=== PATIENT | male | born 1980 | race Caucasian/White ===

== ENCOUNTER 2021-03-28 08:57 | Emergency (ER) | payer BC, SELFPAY ==
[2021-03-28 08:58] VITALS: BP 108/71; PULSE 64; RESP 18; TEMP 36.6; O2SAT 99; BMI 20.4
--- NOTE | 2021-03-28 09:11 | EX.ED.DYSGE1 ---
HPI History of Present Illness Chief Complaint: Back Informant: patient Narrative Narrative: Patient is a 41-year-old male with a history of GERD and asthma who presents to the emergency department for low back pain. Initially started yesterday after cutting branches off of a tree. The majority the pain is on the left side. This is only located in the low back. He denies any falls or trauma. He felt his back tweak at one point and the pain has becoming severe. He currently rates the pain as a 4 out of 10 while sitting. Up walking around makes it worse and gets to a 10 out of 10. Is been taking ibuprofen at home for this without any relief. He denies any saddle anesthesia. No urinary incontinence/retention. No change in bowel movements. No radiation of the pain down his legs. No history of back issues before. No fevers or chills. Denies any IV drug abuse. PFSH PFSH Home Medications cyclobenzaprine 10 mg PO TID PRN #20 tablet 03/28/21 [Rx Last Taken Unknown] lidocaine [Lidoderm] 1 patch TOPICAL DAILY #3 ea 03/28/21 [Rx Last Taken Unknown] naproxen [Naprosyn] 500 mg PO BID PRN #20 tab 03/28/21 [Rx Last Taken Unknown] Allergy/AdvReac Type Severity Reaction Status Date / Time No Known Allergies Allergy Verified 03/28/21 08:59 Social History (Updated 03/28/21 @ 09:[address] Dionte Shannon, DO) Smoking Status: Never smoker ROS ROS ED Constitutional Constitutional ED: Denies chills or fever(s) Eyes Eyes: Denies change in vision ENT ENT ED: Denies epistaxis or rhinorrhea Cardiovascular Cardiovascular: Denies chest pain or palpitations Respiratory/Chest Respiratory/Chest: Denies cough, dyspnea or dyspnea on exertion Gastrointestinal Gastrointestinal: Denies abdominal pain, diarrhea, nausea or vomiting Genitourinary Genitourinary ED: Denies dysuria, hematuria or urinary frequency Musculoskeletal Musculoskeletal: Reports back pain; Denies neck pain Integumentary Denies rash Neurologic Neurologic: Denies dizziness, headache(s) or weakness EXAM Physical Exam Const Vital Signs: 03/28/21 08:58 Temperature 97.9 F Temperature Source Temporal Pulse Rate 64 Respiratory Rate 18 Blood Pressure 108/71 Blood Pressure Mean 83 Pulse Ox 99 Oxygen Delivery Method Room Air Positive well nourished and well developed General Appearance ED: well developed and NAD HEENT Reports normocephalic, head/scalp atraumatic and moist mucous membranes Eyes PERRL and EOMs intact bilaterally Neck supple General: Negative for tenderness Chest Wall inspection of chest normal Resp normal respiratory effort and clear to auscultation bilaterally Auscultation: Negative for rales, rhonchi or wheezes Cardio regular rate, regular rhythm and no murmurs GI normal to inspection, nondistended, normoactive bowel sounds and non-tender Palpation: soft; Negative for guarding or rebound tenderness present Back/Spine no CVA tenderness Back/Spine Narrative: Negative straight leg test bilaterally. No reproducible pain on palpation. Extremity normal to inspection General Extremety ED: Negative for edema or tenderness General Extremity: Negative for edema Neuro oriented x3, CN's II-XII intact bilaterally and no sensory deficits noted Sensorium / Orientation: alert Motor Exam: strength 5/5 throughout Psych mental status grossly normal Skin no rashes or lesions noted MDM MDM MDM Narrative Medical decision making narrative: Patient presents to the ED for nontraumatic low back pain. On exam he is in no acute distress. Has no red flag symptoms for acute surgical spinal emergency. He has a benign physical exam. Will recommend symptomatic treatment. He is given a dose of Toradol here in the ED. He is given a prescription for muscle relaxer, Naprosyn and lidocaine patch. He is to follow-up with his PCP. Return precautions are reviewed. Patient given a work excuse for the next 2 days. He understands and is agreeable this plan. All questions are answered. Discharge Plan Triage Chief Complaint: Back ED Provider: Dionte Shannon Dx/Rx/DC Orders Clinical Impression: Low back pain Instructions: ED Back Pain (Acute or Chronic) Prescriptions: New naproxen [Naprosyn] 500 mg tablet 500 mg PO BID PRN (Reason: pain) Qty: 20 RF: 0 lidocaine [Lidoderm] 5 % adhesive patch,medicated 1 patch topical DAILY Qty: 3 RF: 0 cyclobenzaprine 10 mg tablet 10 mg PO TID PRN (Reason: Muscle Spasm) Qty: 20 RF: 0 Primary Care Provider: Margie Muller Referrals: Margie Muller MD [Primary Care Provider] - 3-5 Days Disposition Disposition: Home, self care
[2021-03-28] MEDS: Ketorolac 15 MG/ML Vial IM (09:28)
== END 2021-03-28 10:06 | disposition home or self-care (01) ==
PROVIDERS: Emergency Provider Emergency Medicine; PCP Pediatrics
DX: M54.5 Low back pain (principal)
CPT/HCPCS: 96372; 99282